=== PATIENT | male | born 1995 | race Caucasian/White ===

== ENCOUNTER → 2023-08-25 08:48 | Outpatient (REF) | payer OTHER, SELFPAY | LOC: HWRAD 08:48 | PROVIDERS: ATTENDING PHYSICIAN Nurse Practitioner | DX: Z87.19 Personal history of other diseases of the digestive system (principal); R10.30 Lower abdominal pain, unspecified; R39.15 Urgency of urination; K59.09 Other constipation | CPT/HCPCS: 74177; Q9967 ==

== ENCOUNTER → 2023-11-07 12:32 | Outpatient (REF) | payer OTHER, SELFPAY | LOC: RCS 12:32 | PROVIDERS: ATTENDING PHYSICIAN Nurse Practitioner | DX: R07.9 Chest pain, unspecified (principal); R55 Syncope and collapse | CPT/HCPCS: 93225; 93226 ==